=== PATIENT | male | born 1935 | race Caucasian/White ===

== ENCOUNTER 2017-04-16 11:46 | Emergency (ER) | payer MEDICARE, BC, OTHER ==
[2017-04-16] MEDS ORDERED: ATROPINE SULFATE INJ 1 MG/1 ML VIAL ONE (11:56)
--- NOTE | 2017-04-16 12:13 | ER Document Report ---
ED General - General Stated Complaint: WEAKNESS Time Seen by Provider: 04/16/17 11:50 Mode of Arrival: Medic Information source: Patient, Relative, Emergency Med Personnel Notes: This is an 81-year-old man with a history of atrial fibrillation, dyslipidemia, PAD who is brought into the emergency room by EMS for lightheadedness. The patient's states that they were getting ready to go for congregational and she noticed that he had broken out into a cold sweat and he stated that he did not feel well. Patient denies chest pain or shortness of breath. EMS reports that the patient had a pulse of 50 and a blood pressure systolic 70. The patient was given IV fluids and transferred to the ER. On presentation to the ER, the patient is noted to be bradycardic with a heart rate of 34. He is alert and answering questions and denies any chest pain or shortness of breath. TRAVEL OUTSIDE OF THE [place] IN LAST 30 DAYS: No - HPI Onset: Just prior to arrival Onset/Duration: Sudden Quality of pain: No pain Severity: None Pain Level: Denies Associated symptoms: Nausea, Sweating, Other - Near-syncope. denies: Chest pain , Fever, Shortness of breath Exacerbated by: Denies Relieved by: Denies Similar symptoms previously: No Recently seen / treated by doctor: No - Related Data Allergies/Adverse Reactions: No Known Allergies Allergy (Verified 09/07/14 10:23) Past Medical History - General Information source: Patient - Social History Smoking Status: Never Smoker Cigarette use (# per day): No Chew tobacco use (# tins/day): No Frequency of alcohol use: None Drug Abuse: None Lives with: Family Family History: Reviewed & Not Pertinent Patient has suicidal ideation: No Patient has homicidal ideation: No - Past Medical History Cardiac Medical History: Reports: Hx Atrial Fibrillation - "IRREGULAR HEARTBEAT ", Hx Heart Attack, Hx Hypercholesterolemia, Hx Hypertension Renal/ Medical History: Reports: Hx Benign Prostatic Hyperplasia Malignancy Medical History: Reports Hx Skin Cancer - FACIAL, REMOVED Past Surgical History: Reports: Hx Orthopedic Surgery - LOWER SPINE - Immunizations Hx Diphtheria, Pertussis, Tetanus Vaccination: No Hx Pneumococcal Vaccination: 08/05/10 Review of Systems - Review of Systems Constitutional: No symptoms reported EENT: No symptoms reported Cardiovascular: See HPI Respiratory: No symptoms reported Gastrointestinal: See HPI Genitourinary: No symptoms reported Male Genitourinary: No symptoms reported Musculoskeletal: No symptoms reported Skin: No symptoms reported Hematologic/Lymphatic: No symptoms reported Neurological/Psychological: No symptoms reported Physical Exam - Vital signs Vitals: Pulse Ox 99 04/16/17 11:50 Notes: Physical exam: GENERAL: 81-year-old man, alert and answering questions, appears pale and is bradycardic (34). HEAD: Atraumatic, normocephalic. EYES: Pupils equal round and reactive to light, extraocular movements intact, sclera anicteric, conjunctiva are normal. ENT: TMs normal, nares patent, oropharynx clear without exudates. Moist mucous membranes. NECK: Normal range of motion, supple without lymphadenopathy or JVD. LUNGS: Breath sounds clear to auscultation bilaterally and equal. No wheezes rales or rhonchi. HEART: Regular rate and rhythm without murmurs, rubs or gallops. ABDOMEN: Soft, normoactive bowel sounds. No tenderness to palpation. No guarding, no rebound. No masses appreciated. Rectal: Brown stool, sent for study EXTREMITIES: Normal range of motion, no pitting or edema. No clubbing or cyanosis. NEUROLOGICAL: Cranial nerves II through XII grossly intact. Normal speech, moving all extremities PSYCH: Normal mood, normal affect. SKIN: Warm, Dry, normal turgor, no rashes or lesions noted. Course - Re-evaluation Re-evalutation: patient was given IV fluid bolus disease Patient given IV atropine 0.5 mg Repeat blood pressure 130/70 with a pulse of 60. 04/16/17 12:12 04/16/17 14:23 Note: The patient's heart rate continues to be in the range of 45-50. He is asymptomatic at this time and his blood pressure is good. Labs reveal that he does have some evidence of acute kidney injury. He was given a 500 mg IV bolus earlier and we are going to cautiously give him IV fluids. He does have a transcutaneous pacer pads on chest wall in case we need it. Otherwise, he seems to be doing well. The plan will be to transfer the patient to [facility] for cardiology evaluation and possible pacemaker. I have discussed the case with Dr. Yanez over [facility] and he is willing to accept the patient in transfer. I have notified the family and they are in agreement. 04/16/17 15:05 Called to the room because of the patient's head dropped back into the 30s. The nursing staff tells me it was low was 25 at one point. The patient is alert and oriented 3 and does not sense that his heart rate is low and his blood pressure is still stable. He was given 0.5 of atropine and that his brought the heart rate back up into the 60s. Report has been called to [facility] and plans for transfer are in process. - Vital Signs Vital signs: Temp Pulse Resp BP Pulse Ox 97.2 F 13 125/54 L 100 04/16/17 12:26 04/16/17 15:00 04/16/17 14:58 04/16/17 15:00 - Laboratory Result Diagrams: 04/16/17 12:01 04/16/17 12:01 Laboratory results interpreted by me: 04/16/17 04/16/17 12:01 12:01 RBC 3.75 L Hgb 11.0 L Hct 32.5 L RDW 14.4 H Sodium 125.6 L Potassium 5.6 H Chloride 94 L BUN 39 H Creatinine 1.74 H Est GFR ( Amer) 46 L Est GFR (Non-Af Amer) 38 L Glucose 135 H AST 15 L Creatine Kinase < 20 L - Diagnostic Test Radiology reviewed: Image reviewed, Reports reviewed - Cardiomegaly, no CHF - EKG Interpretation by Me Rate: Bradycardia - EKG shows a junctional bradycardia with a ventricular rate of 34. The complexes are narrow. No significant ST or T-wave changes Critical Care Note - Critical Care Note Total time excluding time spent on procedures (mins): 90 Discharge - Discharge Clinical Impression: Bradycardia symptomatic Condition: Serious Disposition: [facility] Referrals: MILA CORDOVA MD [Primary Care Provider] - Follow up as needed
[2017-04-16 12:18] LABS: ABSOLUTE EOSINOPHILS # (AUTO) 0.1 10^3/uL (0.0-0.6); ABSOLUTE LYMPHOCYTES (AUTO) 0.8 10^3/uL (0.5-4.7); ABSOLUTE MONOCYTES (AUTO) 0.5 10^3/uL (0.1-1.4); ABSOLUTE NEUT (AUTO) 3.4 10^3/uL (1.7-8.2); BASOPHILS % (AUTO) 0.5 % (0-2); EOSINOPHILS % (AUTO) 2.4 % (0-6); HEMATOCRIT 32.5 % (37.9-51.0); HGB HCT DIFFERENCE 0.5; LYMPHOCYTES % (AUTO) 15.5 % (13-45); MEAN CORPUSCULAR HEMOGLOBIN 29.3 pg (27.0-33.4); MEAN CORPUSCULAR HGB CONC 33.8 g/dL (32.0-36.0); MEAN CORPUSCULAR VOLUME 87 fl (80-97); MONOCYTES % (AUTO) 11.2 % (3-13); RED BLOOD COUNT 3.75 10^6/uL (4.35-5.55); RED CELL DISTRIBUTION WIDTH 14.4 % (11.5-14.0); SEGMENTED NEUTROPHILS % (AUTO) 70.4 % (42-78); WHITE BLOOD COUNT 4.9 10^3/uL (4.0-10.5)
[2017-04-16 12:41] LABS: ALANINE AMINOTRANSFERASE 29 U/L (21-72); ALBUMIN 3.9 g/dL (3.5-5.0); ALKALINE PHOSPHATASE 59 U/L (38-126); ANION GAP 10 (5-19); ASPARTATE AMINO TRANSFERASE 15 U/L (17-59); BILIRUBIN,DIRECT 0.4 mg/dL (0.0-0.4); BILIRUBIN,TOTAL 0.8 mg/dL (0.2-1.3); BLOOD UREA NITROGEN 39 mg/dL (7-20); CALCIUM 8.6 mg/dL (8.4-10.2); CARBON DIOXIDE 22 mmol/L (22-30); CHLORIDE 94 mmol/L (98-107); CREATININE RESULT 1.74 mg/dL (0.52-1.25); GLUCOSE 135 mg/dL (75-110); POTASSIUM 5.6 mmol/L (3.6-5.0); SODIUM 125.6 mmol/L (137-145); TOTAL PROTEIN 6.3 g/dL (6.3-8.2)
[2017-04-16 12:42] LABS: CREATINE KINASE < 20 U/L (55-170)
[2017-04-16 12:53] LABS: CREATINE KINASE MB 0.43 ng/mL (<4.55)
[2017-04-16 12:56] LABS: TROPONIN I < 0.012 ng/mL
--- NOTE | 2017-04-16 13:04 | RADIOLOGY REPORT (SQ) ---
EXAM DESCRIPTION: CHEST SINGLE VIEW COMPLETED DATE/TIME: 04/16/2017 12:31 pm REASON FOR STUDY: near syncope, bradycardia COMPARISON: August 2014 EXAM PARAMETERS: NUMBER OF VIEWS: One view. TECHNIQUE: Single frontal radiographic view of the chest acquired. RADIATION DOSE: NA LIMITATIONS: None. FINDINGS: LUNGS AND PLEURA: No opacities, masses or pneumothorax. No pleural effusion. MEDIASTINUM AND HILAR STRUCTURES: No masses. Contour normal. HEART AND VASCULAR STRUCTURES: Cardiac silhouette is mildly enlarged. BONES: No acute findings. HARDWARE: None in the chest. OTHER: No other significant finding. IMPRESSION: Cardiomegaly. No acute consolidations or pleural effusions are identified. TECHNICAL DOCUMENTATION: JOB ID: [id number]
[2017-04-16] MEDS ORDERED: NORMAL SALINE 1000 ML 1,000 ML IV PRN (14:22)
[2017-04-16] MEDS ORDERED: ATROPINE SULFATE INJ 1 MG/10 ML DISP.SYRIN IV ONE ×2 (15:06→15:58)
[2017-04-16 16:50] VITALS: BP 155/58
--- NOTE | 2017-04-16 18:02 | EKG REPORT ---
SEVERITY:- ABNORMAL ECG - JUNCTIONAL ESCAPE RHYTHM CONSIDER LEFT VENTRICULAR HYPERTROPHY : Confirmed by: Julio Connolly MD 16-Apr-2017 18:01:55
--- NOTE | 2017-04-16 18:02 | EKG REPORT ---
SEVERITY:- ABNORMAL ECG - ATRIAL FIBRILLATION CONSIDER LEFT VENTRICULAR HYPERTROPHY [place] [place] : Confirmed by: Julio Connolly MD 16-Apr-2017 18:01:26
== END 2017-04-16 16:30 | disposition short-term general hospital (02) ==
LOC: ER 11:46
DX: R00.1 Bradycardia, unspecified (principal); I51.7 Cardiomegaly; N17.9 Acute kidney failure, unspecified; R55 Syncope and collapse; R61 Generalized hyperhidrosis; R11.0 Nausea; I25.2 Old myocardial infarction; I10 Essential (primary) hypertension; Z85.828 Personal history of other malignant neoplasm of skin
CPT/HCPCS: 93005; 99291; 99292; 96361; 96374; 36415; 82553; 82550; 85025; 82272; 80053; 84484; 71010; 93010; J0461; J7030

== ENCOUNTER 2017-05-05 11:32 | Emergency (ER) | payer MEDICARE, BC ==
--- NOTE | 2017-05-05 11:41 | ER Document Report ---
ED Respiratory Problem - General Stated Complaint: RESPIRATORY DISTRESS Time Seen by Provider: 05/05/17 11:37 Mode of Arrival: Ambulatory Information source: Patient TRAVEL OUTSIDE OF THE [place] IN LAST 30 DAYS: No - HPI Patient complains to provider of: Short of breath Onset: This morning Duration: Worse/persistent Short of Breath: Severe Chest pain/discomfort: Tightness Cough: Nonproductive Associated symptoms: Chest pain/discomfort, Cough, Short of breath Similar symptoms previously: No Recently seen / treated by doctor: Yes Notes: Patient is an 81-year-old male who presents to the emergency room via EMS on BiPAP related to respiratory distress that started earlier this morning, EMS reports and when they arrived to the house patient's pulse ox was 77%, he does have bilateral lower extremity edema but no known history of congestive heart failure, he has a history of atrial fibrillation, was recently seen at this hospital when he had episodes of bradycardia and was transferred to tertiary care center for further evaluation and treatment, he reports chest tightness but denies chest pain - Related Data Allergies/Adverse Reactions: No Known Allergies Allergy (Verified 05/05/17 11:48) Home Medications: Current Home Medications Amlodipine Besylate [Norvasc 10 mg Tablet] 10 mg PO DAILY 05/05/17 [History] Ascorbic Acid [Vitamin C 500 mg Tablet] 500 mg PO DAILY 05/05/17 [History] Aspirin [Aspirin 81 mg Chewable Tablet] 81 mg PO DAILY 05/05/17 [History] Benazepril HCl 40 mg PO DAILY 05/05/17 [History] Cholecalciferol (Vitamin D3) [Vitamin D3 1000 Unit Tablet] 1,000 unit PO DAILY 05/05/17 [History] Finasteride [Proscar 5 mg Tablet] 5 mg PO DAILY 05/05/17 [History] Inulin/Chromium Picolinate [Fiber Gummies] 1 each PO DAILY 05/05/17 [History] Isosorbide Mononitrate [Imdur 30 mg Tablet.er] 30 mg PO QHS 05/05/17 [History] Multivitamin [Multivitamins] 1 each PO DAILY 05/05/17 [History] Omeprazole 20 mg PO DAILY 05/05/17 [History] Simvastatin [Zocor 20 mg Tablet] 20 mg PO QHS 05/05/17 [History] Spironolactone [Aldactone 25 mg Tablet] 25 mg PO DAILY 05/05/17 [History] Tamsulosin HCl 0.4 mg PO QPM 05/05/17 [History] Past Medical History - General Information source: Patient - Social History Smoking Status: Unknown if Ever Smoked Family History: Reviewed & Not Pertinent - Past Medical History Cardiac Medical History: Reports: Hx Atrial Fibrillation - "IRREGULAR HEARTBEAT ", Hx Heart Attack, Hx Hypercholesterolemia, Hx Hypertension Renal/ Medical History: Reports: Hx Benign Prostatic Hyperplasia. Denies: Hx Peritoneal Dialysis Malignancy Medical History: Reports Hx Skin Cancer - FACIAL, REMOVED Past Surgical History: Reports: Hx Orthopedic Surgery - LOWER SPINE - Immunizations Hx Diphtheria, Pertussis, Tetanus Vaccination: No Hx Pneumococcal Vaccination: 08/05/10 Review of Systems - Review of Systems Constitutional: No symptoms reported EENT: No symptoms reported Cardiovascular: See HPI Respiratory: See HPI Gastrointestinal: No symptoms reported Genitourinary: No symptoms reported Male Genitourinary: No symptoms reported Musculoskeletal: No symptoms reported Skin: No symptoms reported Hematologic/Lymphatic: No symptoms reported Neurological/Psychological: No symptoms reported -: Yes All other systems reviewed and negative Physical Exam - Vital signs Vitals: Pulse Resp BP Pulse Ox 75 26 H 129/81 H 100 05/05/17 11:39 05/05/17 11:39 05/05/17 11:39 05/05/17 11:39 Interpretation: Tachypneic - General General appearance: Alert In distress: Moderate - HEENT Head: Normocephalic, Atraumatic Eyes: Normal Conjunctiva: Normal Extraocular movements intact: Yes Eyelashes: Normal Pupils: PERRL Mucous membranes: Normal Pharynx: Normal Neck: Normal - Respiratory Respiratory status: Respiratory distress, Labored Chest status: Nontender Breath sounds: Nonproductive cough, Rales, Rhonchi Chest palpation: Normal - Cardiovascular Rhythm: Irregularly irregular - Abdominal Inspection: Normal Distension: No distension Bowel sounds: Normal Tenderness: Nontender Organomegaly: No organomegaly - Back Back: Normal, Nontender - Extremities General upper extremity: Other - Multiple ecchymosis General lower extremity: Edema - Neurological Neuro grossly intact: Yes Cognition: Normal Orientation: AAOx4 [place] Coma Scale Eye Opening: Spontaneous [place] Coma Scale Verbal: Oriented Gene Coma Scale Motor: Obeys Commands Gene Coma Scale Total: 15 - Skin Skin Temperature: Warm Skin Moisture: Dry Skin Color: Pale Course - Re-evaluation Re-evalutation: 05/05/17 12:52 A call was placed to [facility] transfer [place], spoke with Romana, requested callback from hospitalist for transfer of patient 05/05/17 13:19 Patient was discussed with Dr. Raquel Lutz, at [facility], who accepted patient for transfer This plan was discussed with patient and daughter at bedside who are in agreement 05/05/17 16:03 Patient has been weaned off of BiPAP for several hours now, continues to maintain airway with good oxygen saturation, stable vital signs otherwise, reports feeling better at this point in time, pending transfer to [facility] for interventional cardiology evaluation for possible NSTEMI with elevated troponin the patient is stable for transport at this point in time - Vital Signs Vital signs: Temp Pulse Resp BP Pulse Ox 76 30 H 139/84 H 96 05/05/17 13:25 05/05/17 16:02 05/05/17 16:02 05/05/17 16:02 - Laboratory Result Diagrams: 05/05/17 11:35 05/05/17 11:35 Laboratory results interpreted by me: 05/05/17 05/05/17 05/05/17 11:35 11:35 11:35 WBC 12.7 H RBC 3.39 L Hgb 9.8 L Hct 29.1 L RDW 14.1 H Seg Neuts % (Manual) 88 H Lymphocytes % (Manual) 2 L Abs Neuts (Manual) 11.2 H Abs Lymphs (Manual) 0.3 L APTT 36.4 H VBG pH VBG pCO2 Sodium 135.6 L Glucose 112 H ALT 18 L Creatine Kinase 39 L NT-Pro-B Natriuret Pep 05/05/17 05/05/17 11:35 11:55 WBC RBC Hgb Hct RDW Seg Neuts % (Manual) Lymphocytes % (Manual) Abs Neuts (Manual) Abs Lymphs (Manual) APTT VBG pH 7.46 H VBG pCO2 34.2 L Sodium Glucose ALT Creatine Kinase NT-Pro-B Natriuret Pep 6180 H - Diagnostic Test Radiology reviewed: Image reviewed, Reports reviewed - EKG Interpretation by Me Rate: Normal Rhythm: A.Fib Critical Care Note - Critical Care Note Total time excluding time spent on procedures (mins): 40 Comments: Patient arrived in respiratory distress on BiPAP, elevated troponin, right- sided pneumonia, requiring transfer to tertiary [facility] for possible NSTEMI Discharge - Discharge Clinical Impression: Respiratory distress, Non-ST elevation (NSTEMI) myocardial infarction Pneumonia Qualifiers: Pneumonia type: due to unspecified organism Laterality: left Lung location: unspecified part of lung Qualified Code(s): J18.9 - Pneumonia, unspecified organism Condition: Serious Disposition: [facility] Referrals: MYLENE CORDOVA MD [Primary Care Provider] - Follow up as needed
[2017-05-05 12:13] LABS: HEMATOCRIT 29.1 % (37.9-51.0); HEMOGLOBIN 9.8 g/dL (13.5-17.0); HGB HCT DIFFERENCE 0.3; MEAN CORPUSCULAR HEMOGLOBIN 28.9 pg (27.0-33.4); MEAN CORPUSCULAR HGB CONC 33.6 g/dL (32.0-36.0); MEAN CORPUSCULAR VOLUME 86 fl (80-97); RED BLOOD COUNT 3.39 10^6/uL (4.35-5.55); RED CELL DISTRIBUTION WIDTH 14.1 % (11.5-14.0); WHITE BLOOD COUNT 12.7 10^3/uL (4.0-10.5)
--- NOTE | 2017-05-05 12:16 | EKG REPORT ---
SEVERITY:- ABNORMAL ECG - ATRIAL FIBRILLATION PROBABLE LVH WITH SECONDARY REPOL ABNRM : Confirmed by: Dara Street MD 05-May-2017 12:16:26
[2017-05-05 12:20] LABS: PROTHROMBIN TIME 15.4 SEC (11.4-15.4)
[2017-05-05 12:21] LABS: PARTIAL THROMBOPLASTIN TIME 36.4 SEC (23.5-35.8)
[2017-05-05 12:25] LABS: VENOUS BLOOD BASE EXCESS -0.2 mmol/L; VENOUS BLOOD HCO3 23.5 mmol/L (20-32); VENOUS BLOOD PCO2 34.2 mmHg (35-63); VENOUS BLOOD PH 7.46 (7.30-7.42)
[2017-05-05 12:31] LABS: ALANINE AMINOTRANSFERASE 18 U/L (21-72); ALBUMIN 4.4 g/dL (3.5-5.0); ALKALINE PHOSPHATASE 66 U/L (38-126); ANION GAP 14 (5-19); ASPARTATE AMINO TRANSFERASE 17 U/L (17-59); BILIRUBIN,DIRECT 0.3 mg/dL (0.0-0.4); BILIRUBIN,TOTAL 1.3 mg/dL (0.2-1.3); BLOOD UREA NITROGEN 18 mg/dL (7-20); CALCIUM 9.1 mg/dL (8.4-10.2); CARBON DIOXIDE 23 mmol/L (22-30); CHLORIDE 99 mmol/L (98-107); CREATINE KINASE 39 U/L (55-170); CREATININE RESULT 0.92 mg/dL (0.52-1.25); GLUCOSE 112 mg/dL (75-110); POTASSIUM 4.5 mmol/L (3.6-5.0); SODIUM 135.6 mmol/L (137-145); TOTAL PROTEIN 7.2 g/dL (6.3-8.2)
[2017-05-05] MEDS ORDERED: CEFTRIAXONE INJ 1000 MG VIAL IV ONE (12:36)
[2017-05-05] MEDS ORDERED: AZITHROMYCIN INJ 500 MG VIAL IV ONE (12:36)
--- NOTE | 2017-05-05 12:39 | RADIOLOGY REPORT (SQ) ---
EXAM DESCRIPTION: CHEST SINGLE VIEW COMPLETED DATE/TIME: 05/05/2017 12:09 pm REASON FOR STUDY: cp COMPARISON: 04/16/2017 EXAM PARAMETERS: NUMBER OF VIEWS: One view. TECHNIQUE: Single frontal radiographic view of the chest acquired. RADIATION DOSE: NA LIMITATIONS: None. FINDINGS: LUNGS AND PLEURA: Ill-defined opacification is present in the right upper and middle or lo wer lobe. MEDIASTINUM AND HILAR STRUCTURES: No masses. Contour normal. HEART AND VASCULAR STRUCTURES: Heart size is borderline. There is mild pulmonary vascular prominence . BONES: No acute findings. HARDWARE: None in the chest. OTHER: No other significant finding. IMPRESSION: 1. Borderline cardiomegaly with no valorie CHF. 2. Pneumonia on the right involving the right upper lobe and the middle lobe or lower lobe. TECHNICAL DOCUMENTATION: JOB ID: [id number]
[2017-05-05 12:40] LABS: CREATINE KINASE MB 1.19 ng/mL (<4.55)
[2017-05-05 12:45] LABS: TROPONIN I 0.295 ng/mL
[2017-05-05 12:50] LABS: BASOPHILS % (MANUAL) 0 % (0-2); EOSINOPHILS % (MANUAL) 0 % (0-6); LYMPHOCYTES % (MANUAL) 2 % (13-45); OVALOCYTES 1+; POIKILOCYTOSIS 1+; POLYCHROMASIA SLIGHT; SCHISTOCYTES 1+; TOTAL CELLS COUNTED 100; TOXIC GRANULATION 1+
[2017-05-05] MEDS ORDERED: ASPIRIN 81 MG TABLET, CHEWABLE PO ONE (12:55)
[2017-05-05 16:29] VITALS: BP 139/84
== END 2017-05-05 17:00 | disposition short-term general hospital (02) ==
LOC: ER 11:32
DX: I21.4 Non-ST elevation (NSTEMI) myocardial infarction (principal); J18.9 Pneumonia, unspecified organism; I48.91 Unspecified atrial fibrillation; R07.89 Other chest pain; R05 Cough; R06.02 Shortness of breath; R60.0 Localized edema; I25.2 Old myocardial infarction; I10 Essential (primary) hypertension; Z85.828 Personal history of other malignant neoplasm of skin; R58 Hemorrhage, not elsewhere classified
CPT/HCPCS: 93005; 99291; 96365; 96367; 36415; 87040; 82553; 82550; 85025; 85610; 85730; 80053; 84484; 82803; 83605; 83880; 71010; 93010; 94660; A9270; J0696; J0456